=== PATIENT | female | born 1960 | race Caucasian/White ===

== ENCOUNTER → 2016-11-29 | Outpatient (CLI) | payer OTHER ==
[~2016-11-29] MED LIST: ASPI-482 PO; ATOR40TA59 PO; CETI10TA30 PO; CHOL20004 PO; FURO40TA4 PO; IBUP-1060 PO; LISI40TA PO; SERT100T PO; SILD50TA PO; SPIR25TA3 PO
--- NOTE | 2016-11-29 14:28 | RAD ---
Ventilation/perfusion lung scan, 11/29/2016: History: Positive d-dimer, pulmonary hypertension The ventilation study was performed utilizing 12.6 mCi of xenon-133. There is decreased ventilation of the left lung relative to the right. Activity in both lungs is mildly heterogeneous. There is fairly good washout of the xenon from the lungs. Perfusion imaging was performed following IV injection of 5.5 mCi of technetium 99m MAA. Activity on the perfusion study is similar to that seen on the ventilation images. No unmatched or segmental perfusion defects are seen. IMPRESSION: 1. Mildly decreased ventilation and perfusion of the left lung. 2. No unmatched perfusion defects are seen to suggest pulmonary emboli.
--- NOTE | 2016-11-29 15:22 | RAD ---
Chest, 2 views, 11/29/2016: History: Pulmonary hypertension, elevated d-dimer No previous chest radiographs are available at this time for comparison purposes. The heart is enlarged. The right hilum is mildly prominent. The pulmonary vascularity is not congested. No pulmonary infiltrates are seen. There is no evidence of pleural fluid. Mild spurring is present in the spine. IMPRESSION: 1. Cardiomegaly. 2. Mild right hilar prominence, perhaps related to the given history of pulmonary hypertension. Correlation with previous chest radiographs if available is suggested to confirm stability. 3. No acute pulmonary abnormality is detected.
== END | disposition home or self-care (01) ==
LOC: NM 16:54
PROVIDERS: ATTEND Internal Medicine Cardiovascular Disease
DX: I51.7 Cardiomegaly (principal); I27.2 Other secondary pulmonary hypertension
CPT/HCPCS: 71020; 78582; 96374; A9540; A9558